=== PATIENT | male | born 1980 | race Caucasian/White ===

== ENCOUNTER 2018-04-19 01:08 | Emergency (ER) | payer MEDICAID ==
[~2018-04-19] VITALS: Ht 177.8 cm; Wt 82.7 kg
[2018-04-19] MEDS ORDERED: PROMETHAZINE/DEXTROMETHORPHAN 6.25-15MG/5ML BOTTLE 120ML PO PRN (04:00)
[2018-04-19 04:34] VITALS: BP 152/90
== END 2018-04-19 04:50 | disposition home or self-care (01) ==
LOC: ER 01:08
DX: R05 Cough (principal)
CPT/HCPCS: 71045; 87186; 99284